=== PATIENT | female | born 1945 | race African-American/Black ===

== ENCOUNTER 2018-09-27 13:33 | Emergency (ER) | payer OTHER, MEDICARE ==
[~2018-09-27] VITALS: Ht 162.6 cm; Wt 87.1 kg
[~2018-09-27 13:33] MED LIST: ASPI-482 PO; CHOL10003 PO; CRESTOR20 MG PO; MULT-208 PO
[2018-09-27 13:40] VITALS: BP 161/74
[2018-09-27] MEDS ORDERED: ACETAMINOPHEN 325 MG TABLET. PO ONE (14:15)
[2018-09-27] MEDS ORDERED: LIDOCAINE (700MG/PATCH) PATCH. TD SCH (14:30)
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
== END 2018-09-27 15:37 | disposition home or self-care (01) ==
LOC: ER 13:33
DX: M54.16 Radiculopathy, lumbar region (principal); M25.572 Pain in left ankle and joints of left foot; E78.00 Pure hypercholesterolemia, unspecified; I10 Essential (primary) hypertension; V43.62XA Car passenger injured in collision with other type car in traffic accident, initial encounter; Y93.89 Activity, other specified; Y92.410 Unspecified street and highway as the place of occurrence of the external cause; Y99.8 Other external cause status
CPT/HCPCS: 72100; 73610; 99283

== ENCOUNTER 2018-10-18 10:46 | Inpatient (IN) | payer OTHER, MEDICARE ==
[~2018-10-18] VITALS: Ht 160 cm; Wt 86.2 kg
[2018-10-18] MEDS ORDERED: IV NORMAL SALINE 1000ML BAG 1,000 ML IV SCH (11:08)
[2018-10-18] MEDS ORDERED: fentaNYL PF VIAL 100 MCG/2 ML VIAL IV PRN (11:15)
[2018-10-18 11:19] LABS: BASO # 0.1 x10^3/uL (0.0-0.2); BASO % 1 % (0-3); EOS % 0 % (0-3); HEMATOCRIT 34.9 % (36.0-47.0); HEMOGLOBIN 11.3 g/dL (12.0-15.5); LYMPH # 1.8 x10^3/uL (1.0-4.8); LYMPH % 18 % (24-48); MEAN CORPUSCULAR HEMOGLOBIN 30 pg (25-35); MEAN CORPUSCULAR HGB CONC 32 g/dL (31-37); MEAN CORPUSCULAR VOLUME 92 fL (79-100); MONO # 0.7 x10^3/uL (0.0-1.1); MONO % 7 % (0-9); NEUT # 7.4 x10^3uL (1.8-7.7); NEUT % 74 % (31-73); PLATELET COUNT 273 x10^3/uL (140-400); RED BLOOD COUNT 3.77 x10^6/uL (3.50-5.40); RED CELL DISTRIBUTION WIDTH 14.1 % (11.5-14.5)
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
[2018-10-18 11:41] LABS: ALBUMIN 3.3 g/dL (3.4-5.0); DIRECT BILIRUBIN 0.1 mg/dL (0.0-0.2); TOTAL BILIRUBIN 0.6 mg/dL (0.2-1.0); TOTAL PROTEIN 7.9 g/dL (6.4-8.2)
[2018-10-18 11:47] LABS: BILIRUBIN,URINE NEGATIVE (NEG); CLARITY,URINE CLEAR; COLOR,URINE YELLOW; NITRITE,URINE NEGATIVE (NEG); PROTEIN,URINE NEGATIVE (NEG-TRACE); UROBILINOGEN,URINE 0.2 mg/dL (0.2 mg/dL)
[2018-10-18 11:51] LABS: SQUAMOUS EPITHELIAL CELL,UR OCC /LPF
[2018-10-18 11:52] LABS: BACTERIA,URINE FEW /HPF (0-FEW); RBC,URINE 0 /HPF (0-2); WBC,URINE OCC /HPF (0-4)
[2018-10-18 11:56] LABS: CALCIUM 9.4 mg/dL (8.5-10.1); GFR 65.9; POTASSIUM 3.3 mmol/L (3.5-5.1)
[2018-10-18] MEDS ORDERED: IOHEXOL 300 MG/ML 100ML VIAL. IV ONE (12:15)
[2018-10-18] MEDS ORDERED: CONTRAST GIVEN. MC PRN (12:30)
--- NOTE | 2018-10-18 12:54 | RAD ---
EXAM: Abdomen and pelvis CT with intravenous contrast. HISTORY: Pain. TECHNIQUE: Computed tomographic images of the abdomen and pelvis were obtained following the administration of 75 cc Omnipaque 300 intravenous contrast. Multiplanar reformatting was performed. *One or more of the following individualized dose reduction techniques were utilized for this examination: 1. Automated exposure control. 2. Adjustment of the mA and/or kV according to patient size. 3. Use of iterative reconstruction technique. COMPARISON: None. FINDINGS: Evaluation of the lower thorax demonstrates posterior dependent and basilar atelectasis. There is no infiltrate or pleural effusion. There is mild cardia mentally. There is coronary artery atherosclerosis. There is a tiny hiatal hernia. No hepatic lesion is seen. The gallbladder, pancreas, spleen and adrenal glands are unremarkable. There are multiple renal cysts, the largest of which is seen within the superior left kidney measuring 3.8 cm. No solid renal lesion is seen. There is no hydronephrosis. There are a few distal colonic diverticula. There is focal fatty stranding within the lower abdomen to the right of midline containing central areas of extraluminal gas and soft tissue density. This region of stranding measures approximately 10 cm in maximum dimension and is located medially adjacent to loops of small bowel. The sigmoid colon appears to be separate from this location. There is no adjacent small or large bowel wall thickening. No drainable fluid collection is seen. There is a small amount of pelvic free fluid. The uterus is unremarkable. The urinary bladder is unremarkable. There is no lymphadenopathy. There is aortobiiliac atherosclerosis. There are degenerative changes involving the lower lumbar spine. There is a transitional lumbosacral segment. IMPRESSION: 1. Large region of fatty stranding within the anterior abdominal mesentery containing central areas of or extraluminal gas. The differential includes a perforated small bowel diverticulum or perforated small bowel neoplasm. There is no significant bowel wall thickening in this location. Specifically, the adjacent sigmoid colon appears to be separate from this region of stranding. No drainable fluid collection is seen. 2. Few distal colonic diverticula. 3. Multiple renal cysts. 4. Tiny hiatal hernia. 5. Small amount of pelvic free fluid. Electronically signed by: Leora Chavez MD (10/18/2018 12:51 PM) [id number]
--- NOTE | 2018-10-18 13:26 | PDOC1 ---
History and Physical Date of Admission Date of Admission DATE: 10/18/18 TIME: 13:25 Identification/Chief Complaint Chief Complaint error not our patient Past Medical History Past Medical History Past Medical History Past Medical History: High Cholesterol, Hypertension Past Surgical History: Other Additional Past Surgical Histo: hernia repair Alcohol Use: None Drug Use: None Current Medications Current Medications Current Medications Fentanyl Citrate (Fentanyl 2ml Vial) 50 mcg PRN Q15MIN PRN IV PAIN GREATER THAN 3/10 Last administered on 10/18/18at 11:22; Start 10/18/18 at 11:15; Stop at 11:14 Sodium Chloride 1,000 ml @ 100 mls/hr Q10H IV Last administered on 10/18/18at 11:21; Start 10/18/18 at 11:08; Stop 10/18/18 at 21:07 Iohexol (Omnipaque 300 Mg/ml) 75 ml 1X ONCE IV Last administered on 10/18/18at 12:24; Start 10/18/18 at 12:15; Stop 10/18/18 at 12:19; Status DC Info (CONTRAST GIVEN -- Rx MONITORING) 1 each PRN DAILY PRN MC SEE COMMENTS; Start 10/18/18 at 12:30; Stop 10/20/18 at 12:29 Active Scripts Active Reported Multi-Day Vitamins (Multivitamin) 1 Each Tablet 1 Tab PO DAILY Aspir 81 (Aspirin) 81 Mg Tablet.dr 81 Mg PO Vitamin D3 (Cholecalciferol (Vitamin D3)) 1,000 Unit Tablet 1 Tab PO DAILY Crestor (Rosuvastatin Calcium) 20 Mg Tablet 1 Tab PO DAILY Allergies Allergies: Coded Allergies: No Known Drug Allergies (Unverified , 07/11/14) Vitals Vitals Vital Signs Date Time Temp Pulse Resp B/P (MAP) Pulse Ox O2 Delivery O2 Flow Rate FiO2 10/18/18 11:22 18 10/18/18 11:06 98.4 76 143/71 (95) 97 Room Air 98.4 Labs Labs Laboratory Tests Test 10/18/18 10:52 10/18/18 11:01 Urine Collection Type Unknown Urine Color Yellow Urine Clarity Clear Urine pH 6.0 Urine Specific [place] 1.025 Urine Protein Negative mg/dL (NEG-TRACE) Urine Glucose (UA) Negative mg/dL (NEG) Urine Ketones (Stick) Negative mg/dL (NEG) Urine Blood Negative (NEG) Urine Nitrite Negative (NEG) Urine Bilirubin Negative (NEG) Urine Urobilinogen Dipstick 0.2 mg/dL (0.2 mg/dL) Urine Leukocyte Esterase Negative (NEG) Urine RBC 0 /HPF (0-2) Urine WBC Occ /HPF (0-4) Urine Squamous Epithelial Cells Occ /LPF Urine Bacteria Few /HPF (0-FEW) Urine Mucus Slight /LPF White Blood Count 10.0 x10^3/uL (4.0-11.0) Red Blood Count 3.77 x10^6/uL (3.50-5.40) Hemoglobin 11.3 g/dL (12.0-15.5) Hematocrit 34.9 % (36.0-47.0) Mean Corpuscular Volume 92 fL (79-100) Mean Corpuscular Hemoglobin 30 pg (25-35) Mean Corpuscular Hemoglobin Concent 32 g/dL (31-37) Red Cell Distribution Width 14.1 % (11.5-14.5) Platelet Count 273 x10^3/uL (140-400) Neutrophils (%) (Auto) 74 % (31-73) Lymphocytes (%) (Auto) 18 % (24-48) Monocytes (%) (Auto) 7 % (0-9) Eosinophils (%) (Auto) 0 % (0-3) Basophils (%) (Auto) 1 % (0-3) Neutrophils # (Auto) 7.4 x10^3uL (1.8-7.7) Lymphocytes # (Auto) 1.8 x10^3/uL (1.0-4.8) Monocytes # (Auto) 0.7 x10^3/uL (0.0-1.1) Eosinophils # (Auto) 0.0 x10^3/uL (0.0-0.7) Basophils # (Auto) 0.1 x10^3/uL (0.0-0.2) Sodium Level 138 mmol/L (136-145) Potassium Level 3.3 mmol/L (3.5-5.1) Chloride Level 99 mmol/L (98-107) Carbon Dioxide Level 29 mmol/L (21-32) Anion Gap 10 (6-14) Blood Urea Nitrogen 13 mg/dL (7-20) Creatinine 1.0 mg/dL (0.6-1.0) Estimated GFR (Cockcroft-Gault) 65.9 Glucose Level 103 mg/dL (70-99) Calcium Level 9.4 mg/dL (8.5-10.1) Total Bilirubin 0.6 mg/dL (0.2-1.0) Direct Bilirubin 0.1 mg/dL (0.0-0.2) Aspartate Amino Transf (AST/SGOT) 9 U/L (15-37) Alanine Aminotransferase (ALT/SGPT) 16 U/L (14-59) Alkaline Phosphatase 85 U/L (46-116) Total Protein 7.9 g/dL (6.4-8.2) Albumin 3.3 g/dL (3.4-5.0) Lipase 36 U/L (73-393) Laboratory Tests Test 10/18/18 10:52 10/18/18 11:01 Urine Collection Type Unknown Urine Color Yellow Urine Clarity Clear Urine pH 6.0 Urine Specific [place] 1.025 Urine Protein Negative mg/dL (NEG-TRACE) Urine Glucose (UA) Negative mg/dL (NEG) Urine Ketones (Stick) Negative mg/dL (NEG) Urine Blood Negative (NEG) Urine Nitrite Negative (NEG) Urine Bilirubin Negative (NEG) Urine Urobilinogen Dipstick 0.2 mg/dL (0.2 mg/dL) Urine Leukocyte Esterase Negative (NEG) Urine RBC 0 /HPF (0-2) Urine WBC Occ /HPF (0-4) Urine Squamous Epithelial Cells Occ /LPF Urine Bacteria Few /HPF (0-FEW) Urine Mucus Slight /LPF White Blood Count 10.0 x10^3/uL (4.0-11.0) Red Blood Count 3.77 x10^6/uL (3.50-5.40) Hemoglobin 11.3 g/dL (12.0-15.5) Hematocrit 34.9 % (36.0-47.0) Mean Corpuscular Volume 92 fL (79-100) Mean Corpuscular Hemoglobin 30 pg (25-35) Mean Corpuscular Hemoglobin Concent 32 g/dL (31-37) Red Cell Distribution Width 14.1 % (11.5-14.5) Platelet Count 273 x10^3/uL (140-400) Neutrophils (%) (Auto) 74 % (31-73) Lymphocytes (%) (Auto) 18 % (24-48) Monocytes (%) (Auto) 7 % (0-9) Eosinophils (%) (Auto) 0 % (0-3) Basophils (%) (Auto) 1 % (0-3) Neutrophils # (Auto) 7.4 x10^3uL (1.8-7.7) Lymphocytes # (Auto) 1.8 x10^3/uL (1.0-4.8) Monocytes # (Auto) 0.7 x10^3/uL (0.0-1.1) Eosinophils # (Auto) 0.0 x10^3/uL (0.0-0.7) Basophils # (Auto) 0.1 x10^3/uL (0.0-0.2) Sodium Level 138 mmol/L (136-145) Potassium Level 3.3 mmol/L (3.5-5.1) Chloride Level 99 mmol/L (98-107) Carbon Dioxide Level 29 mmol/L (21-32) Anion Gap 10 (6-14) Blood Urea Nitrogen 13 mg/dL (7-20) Creatinine 1.0 mg/dL (0.6-1.0) Estimated GFR (Cockcroft-Gault) 65.9 Glucose Level 103 mg/dL (70-99) Calcium Level 9.4 mg/dL (8.5-10.1) Total Bilirubin 0.6 mg/dL (0.2-1.0) Direct Bilirubin 0.1 mg/dL (0.0-0.2) Aspartate Amino Transf (AST/SGOT) 9 U/L (15-37) Alanine Aminotransferase (ALT/SGPT) 16 U/L (14-59) Alkaline Phosphatase 85 U/L (46-116) Total Protein 7.9 g/dL (6.4-8.2) Albumin 3.3 g/dL (3.4-5.0) Lipase 36 U/L (73-393) Images Images EXAM: Abdomen and pelvis CT with intravenous contrast. HISTORY: Pain. TECHNIQUE: Computed tomographic images of the abdomen and pelvis were obtained following the administration of 75 cc Omnipaque 300 intravenous contrast. Multiplanar reformatting was performed. *One or more of the following individualized dose reduction techniques were utilized for this examination: 1. Automated exposure control. 2. Adjustment of the mA and/or kV according to patient size. 3. Use of iterative reconstruction technique. COMPARISON: None. FINDINGS: Evaluation of the lower thorax demonstrates posterior dependent and basilar atelectasis. There is no infiltrate or pleural effusion. There is mild cardia mentally. There is coronary artery atherosclerosis. There is a tiny hiatal hernia. No hepatic lesion is seen. The gallbladder, pancreas, spleen and adrenal glands are unremarkable. There are multiple renal cysts, the largest of which is seen within the superior left kidney measuring 3.8 cm. No solid renal lesion is seen. There is no hydronephrosis. There are a few distal colonic diverticula. There is focal fatty stranding within the lower abdomen to the right of midline containing central areas of extraluminal gas and soft tissue density. This region of stranding measures approximately 10 cm in maximum dimension and is located medially adjacent to loops of small bowel. The sigmoid colon appears to be separate from this location. There is no adjacent small or large bowel wall thickening. No drainable fluid collection is seen. There is a small amount of pelvic free fluid. The uterus is unremarkable. The urinary bladder is unremarkable. There is no lymphadenopathy. There is aortobiiliac atherosclerosis. There are degenerative changes involving the lower lumbar spine. There is a transitional lumbosacral segment. IMPRESSION: 1. Large region of fatty stranding within the anterior abdominal mesentery containing central areas of or extraluminal gas. The differential includes a perforated small bowel diverticulum or perforated small bowel neoplasm. There is no significant bowel wall thickening in this location. Specifically, the adjacent sigmoid colon appears to be separate from this region of stranding. No drainable fluid collection is seen. 2. Few distal colonic diverticula. 3. Multiple renal cysts. 4. Tiny hiatal hernia. 5. Small amount of pelvic free fluid. Electronically signed by: Leora Chavez MD (10/18/2018 12:51 PM) [id number] VTE Prophylaxis Ordered VTE Prophylaxis Devices: Yes VTE Pharmacological Prophylaxi: Yes Assessment/Plan Assessment/Plan IMPRESSION: 1. Large region of fatty stranding within the anterior abdominal mesentery containing central areas of or extraluminal gas. The differential includes a perforated small bowel diverticulum or perforated small bowel neoplasm. There is no significant bowel wall thickening in this location. Specifically, the adjacent sigmoid colon appears to be separate from this region of stranding. No drainable fluid collection is seen. 2. Few distal colonic diverticula. 3. Multiple renal cysts. 4. Tiny hiatal hernia. 5. Small amount of pelvic free fluid. ROSIE MARTINEZ MD Oct 18, 2018 13:26
[2018-10-18] MEDS ORDERED: IV DEXTROSE 5%-LACT RINGERS 1,000 ML IV ONE (13:30)
[2018-10-18] MEDS ORDERED: PIPERACILLIN/TAZOBACTAM 3.375 GM in IV NORMAL SALINE 50ML 50 ML IV ONE (13:30)
[2018-10-18] MEDS ORDERED: ONDANSETRON PF 4 MG/2 ML VIAL. IV PRN (13:30)
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
[2018-10-18 15:00] VITALS: BP 148/77
--- NOTE | 2018-10-18 15:00 | NUR ---
Pt arrived from ED by wc at 1435. A&Ox4, VSS on RA. C/o lower abd pain 8/10 at this time. IVF infusing. Pt's at bedside. Hospital policies reviewed. CL diet restrictions explained, verbalized understanding. Will give pain meds. Side rails up x2, call light within reach, will continue to monitor.
[2018-10-18] MEDS: MORPHINE SULFATE 4 MG/ML VIAL. IV PRN (15:06)
[2018-10-18] MEDS ORDERED: GABA300C9 PO (15:59)
[2018-10-18] MEDS ORDERED: LOSA1TAB22 PO (15:59)
[2018-10-18] MEDS ORDERED: SIMV80TA17 PO (15:59)
--- NOTE | 2018-10-18 16:00 | NUR ---
Home meds reviewed with pt and pharmacy. Dr. Perez notified of admission, would like to hold home meds for now, orders for hydralazine prn obtained in case of need, pt informed of the same. Will continue to monitor.
[2018-10-18] MEDS ORDERED: hydrALAZINE 20 MG/ML VIAL. IVP PRN (16:15)
[2018-10-18 19:00] VITALS: BP 158/89
[2018-10-18 23:00] VITALS: BP 145/77
[2018-10-18] MEDS ORDERED: POTASSIUM CHLORIDE 10 MEQ TABLET.ER. PO ONE (23:30)
[2018-10-18] MEDS: ACETAMINOPHEN 325 MG TABLET. PO PRN (23:32)
--- NOTE | 2018-10-18 23:34 | NUR ---
MD was notified of slight temp. Orders were given. Pt. Addendum: 10/18/18 at 2337 by RORY SUTHERLAND RN Pt. also has potassium of 3.3. Order was given to help with this as well. Medications were explained to patient. Will continue to monitor.
[2018-10-18 23:59] LABS: BASO # 0.1 x10^3/uL (0.0-0.2); BASO % 1 % (0-3); EOS % 0 % (0-3); HEMATOCRIT 32.8 % (36.0-47.0); HEMOGLOBIN 10.6 g/dL (12.0-15.5); LYMPH # 1.2 x10^3/uL (1.0-4.8); LYMPH % 14 % (24-48); MEAN CORPUSCULAR HEMOGLOBIN 30 pg (25-35); MEAN CORPUSCULAR HGB CONC 32 g/dL (31-37); MEAN CORPUSCULAR VOLUME 92 fL (79-100); MONO # 0.6 x10^3/uL (0.0-1.1); MONO % 8 % (0-9); NEUT # 6.5 x10^3uL (1.8-7.7); NEUT % 77 % (31-73); PLATELET COUNT 241 x10^3/uL (140-400); RED BLOOD COUNT 3.55 x10^6/uL (3.50-5.40); RED CELL DISTRIBUTION WIDTH 13.9 % (11.5-14.5); WHITE BLOOD COUNT 8.5 x10^3/uL (4.0-11.0)
[2018-10-19 03:00] VITALS: BP 125/65
[2018-10-19 04:44] LABS: BASO % 0 % (0-3); EOS % 0 % (0-3); HEMATOCRIT 30.2 % (36.0-47.0); HEMOGLOBIN 9.8 g/dL (12.0-15.5); LYMPH # 1.5 x10^3/uL (1.0-4.8); LYMPH % 19 % (24-48); MEAN CORPUSCULAR HEMOGLOBIN 30 pg (25-35); MEAN CORPUSCULAR HGB CONC 32 g/dL (31-37); MEAN CORPUSCULAR VOLUME 93 fL (79-100); MONO # 0.6 x10^3/uL (0.0-1.1); MONO % 8 % (0-9); NEUT # 5.8 x10^3uL (1.8-7.7); NEUT % 72 % (31-73); PLATELET COUNT 227 x10^3/uL (140-400); RED BLOOD COUNT 3.26 x10^6/uL (3.50-5.40); WHITE BLOOD COUNT 8.1 x10^3/uL (4.0-11.0)
[2018-10-19 05:10] LABS: CALCIUM 8.6 mg/dL (8.5-10.1); GFR 65.9; POTASSIUM 3.4 mmol/L (3.5-5.1)
[2018-10-19] MEDS: MORPHINE SULFATE 4 MG/ML VIAL. IV PRN (06:02)
[2018-10-19 07:15] VITALS: BP 133/64
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
[2018-10-19] MEDS ORDERED: POTASSIUM CHLORIDE 20 MEQ TABLET.ER. PO ONE (07:45)
--- NOTE | 2018-10-19 08:51 | RAD ---
Abdomen, 2 views, 10/19/2018: HISTORY: Abdominal distention, pain Gas is present in large and small bowel in a nonspecific pattern. The gas extends down through the rectum. No free air seen in the abdomen. There is no evidence of organomegaly. Moderate scattered degenerative changes are present in the spine. IMPRESSION: No acute abdominal abnormality is detected. Electronically signed by: Fabian Carreon MD (10/19/2018 8:48 AM) [facility]
[2018-10-19] MEDS: LOSARTAN POTASSIUM 50 MG TABLET. PO SCH (09:02)
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
[2018-10-19] MEDS ORDERED: POLYVINYL ALCOHOL 1.4% OPHTH SOLUTION 15ML BOTTLE. OU PRN (09:45)
--- NOTE | 2018-10-19 10:42 | NUR ---
SW following for discharge planning. Discussed with RN, pt is from home with , gets around fine. No SW needs at this time. SW will continue to follow.
[2018-10-19 11:14] VITALS: BP 149/81
[2018-10-19] MEDS: ACETAMINOPHEN 325 MG TABLET. PO PRN ×2 (11:56→21:14)
[2018-10-19] MEDS: PIPERACILLIN/TAZOBACTAM 3.375 GM in IV NORMAL SALINE 50ML 50 ML IV SCH ×2 (11:57→17:40)
[2018-10-19] MEDS ORDERED: oxyCODONE/APAP 5/325 1 TAB TABLET PO PRN (13:30)
[2018-10-19 15:01] VITALS: BP 147/55
[2018-10-19 19:00] VITALS: BP 134/48
[2018-10-19] MEDS ORDERED: SIMVASTATIN 40 MG TABLET. PO SCH (21:00)
[2018-10-19] MEDS ORDERED: GABAPENTIN 300 MG CAPSULE. PO SCH (21:00)
[2018-10-19] MEDS: LACTOBACILLUS RHAMNOSUS GG 1 CAPSULE. PO SCH (21:12)
[2018-10-19 22:58] VITALS: BP 152/75
[2018-10-20] MEDS: PIPERACILLIN/TAZOBACTAM 3.375 GM in IV NORMAL SALINE 50ML 50 ML IV SCH ×2 (00:31→05:27)
[2018-10-20 03:00] VITALS: BP 133/72
[2018-10-20 05:19] LABS: HEMATOCRIT 31.1 % (36.0-47.0); HEMOGLOBIN 10.2 g/dL (12.0-15.5); RED BLOOD COUNT 3.38 x10^6/uL (3.50-5.40); RED CELL DISTRIBUTION WIDTH 13.9 % (11.5-14.5); WHITE BLOOD COUNT 5.6 x10^3/uL (4.0-11.0)
[2018-10-20 06:05] LABS: CALCIUM 8.8 mg/dL (8.5-10.1); GFR 65.9; POTASSIUM 3.7 mmol/L (3.5-5.1)
[2018-10-20 07:00] VITALS: BP 162/57
[2018-10-20] MEDS: ACETAMINOPHEN 325 MG TABLET. PO PRN ×2 (07:16→13:05)
--- NOTE | 2018-10-20 08:27 | PDOC ---
CRISTAL PETERSON EXTRUDER 10/20/18 0827: SURGICAL PROGRESS NOTE Subjective reports very mild left sided pain no n/v tolerating breakfast Vital Signs Vital Signs Date Time Temp Pulse Resp B/P (MAP) Pulse Ox O2 Delivery O2 Flow Rate FiO2 10/20/18 07:30 Room Air 10/20/18 03:00 98.4 62 18 133/72 (92) 98 98.4 I&O Intake and Output 10/20/18 06:59 Intake Total 760 ml Balance 760 ml Intake Oral 760 ml # Voids 6 General: Alert, Oriented X3, Cooperative, No acute distress Abdomen: Soft, Other (ND, NTTP on exam) Labs Laboratory Tests Test 10/18/18 10:52 10/18/18 11:01 10/18/18 23:45 10/19/18 03:55 Urine Collection Type Unknown Urine Color Yellow Urine Clarity Clear Urine pH 6.0 Urine Specific [place] 1.025 Urine Protein Negative mg/dL (NEG-TRACE) Urine Glucose (UA) Negative mg/dL (NEG) Urine Ketones (Stick) Negative mg/dL (NEG) Urine Blood Negative (NEG) Urine Nitrite Negative (NEG) Urine Bilirubin Negative (NEG) Urine Urobilinogen Dipstick 0.2 mg/dL (0.2 mg/dL) Urine Leukocyte Esterase Negative (NEG) Urine RBC 0 /HPF (0-2) Urine WBC Occ /HPF (0-4) Urine Squamous Epithelial Cells Occ /LPF Urine Bacteria Few /HPF (0-FEW) Urine Mucus Slight /LPF White Blood Count 10.0 x10^3/uL (4.0-11.0) 8.5 x10^3/uL (4.0-11.0) 8.1 x10^3/uL (4.0-11.0) Red Blood Count 3.77 x10^6/uL (3.50-5.40) 3.55 x10^6/uL (3.50-5.40) 3.26 x10^6/uL (3.50-5.40) Hemoglobin 11.3 g/dL (12.0-15.5) 10.6 g/dL (12.0-15.5) 9.8 g/dL (12.0-15.5) Hematocrit 34.9 % (36.0-47.0) 32.8 % (36.0-47.0) 30.2 % (36.0-47.0) Mean Corpuscular Volume 92 fL (79-100) 92 fL (79-100) 93 fL (79-100) Mean Corpuscular Hemoglobin 30 pg (25-35) 30 pg (25-35) 30 pg (25-35) Mean Corpuscular Hemoglobin Concent 32 g/dL (31-37) 32 g/dL (31-37) 32 g/dL (31-37) Red Cell Distribution Width 14.1 % (11.5-14.5) 13.9 % (11.5-14.5) 14.0 % (11.5-14.5) Platelet Count 273 x10^3/uL (140-400) 241 x10^3/uL (140-400) 227 x10^3/uL (140-400) Neutrophils (%) (Auto) 74 % (31-73) 77 % (31-73) 72 % (31-73) Lymphocytes (%) (Auto) 18 % (24-48) 14 % (24-48) 19 % (24-48) Monocytes (%) (Auto) 7 % (0-9) 8 % (0-9) 8 % (0-9) Eosinophils (%) (Auto) 0 % (0-3) 0 % (0-3) 0 % (0-3) Basophils (%) (Auto) 1 % (0-3) 1 % (0-3) 0 % (0-3) Neutrophils # (Auto) 7.4 x10^3uL (1.8-7.7) 6.5 x10^3uL (1.8-7.7) 5.8 x10^3uL (1.8-7.7) Lymphocytes # (Auto) 1.8 x10^3/uL (1.0-4.8) 1.2 x10^3/uL (1.0-4.8) 1.5 x10^3/uL (1.0-4.8) Monocytes # (Auto) 0.7 x10^3/uL (0.0-1.1) 0.6 x10^3/uL (0.0-1.1) 0.6 x10^3/uL (0.0-1.1) Eosinophils # (Auto) 0.0 x10^3/uL (0.0-0.7) 0.0 x10^3/uL (0.0-0.7) 0.0 x10^3/uL (0.0-0.7) Basophils # (Auto) 0.1 x10^3/uL (0.0-0.2) 0.1 x10^3/uL (0.0-0.2) 0.0 x10^3/uL (0.0-0.2) Sodium Level 138 mmol/L (136-145) 138 mmol/L (136-145) Potassium Level 3.3 mmol/L (3.5-5.1) 3.4 mmol/L (3.5-5.1) Chloride Level 99 mmol/L (98-107) 101 mmol/L (98-107) Carbon Dioxide Level 29 mmol/L (21-32) 29 mmol/L (21-32) Anion Gap 10 (6-14) 8 (6-14) Blood Urea Nitrogen 13 mg/dL (7-20) 7 mg/dL (7-20) Creatinine 1.0 mg/dL (0.6-1.0) 1.0 mg/dL (0.6-1.0) Estimated GFR (Cockcroft-Gault) 65.9 65.9 Glucose Level 103 mg/dL (70-99) 125 mg/dL (70-99) Calcium Level 9.4 mg/dL (8.5-10.1) 8.6 mg/dL (8.5-10.1) Total Bilirubin 0.6 mg/dL (0.2-1.0) Direct Bilirubin 0.1 mg/dL (0.0-0.2) Aspartate Amino Transf (AST/SGOT) 9 U/L (15-37) Alanine Aminotransferase (ALT/SGPT) 16 U/L (14-59) Alkaline Phosphatase 85 U/L (46-116) Total Protein 7.9 g/dL (6.4-8.2) Albumin 3.3 g/dL (3.4-5.0) Lipase 36 U/L (73-393) Test 10/20/18 04:05 White Blood Count 5.6 x10^3/uL (4.0-11.0) Red Blood Count 3.38 x10^6/uL (3.50-5.40) Hemoglobin 10.2 g/dL (12.0-15.5) Hematocrit 31.1 % (36.0-47.0) Mean Corpuscular Volume 92 fL (79-100) Mean Corpuscular Hemoglobin 30 pg (25-35) Mean Corpuscular Hemoglobin Concent 33 g/dL (31-37) Red Cell Distribution Width 13.9 % (11.5-14.5) Platelet Count 227 x10^3/uL (140-400) Sodium Level 141 mmol/L (136-145) Potassium Level 3.7 mmol/L (3.5-5.1) Chloride Level 104 mmol/L (98-107) Carbon Dioxide Level 29 mmol/L (21-32) Anion Gap 8 (6-14) Blood Urea Nitrogen 10 mg/dL (7-20) Creatinine 1.0 mg/dL (0.6-1.0) Estimated GFR (Cockcroft-Gault) 65.9 Glucose Level 114 mg/dL (70-99) Calcium Level 8.8 mg/dL (8.5-10.1) Laboratory Tests Test 10/20/18 04:05 White Blood Count 5.6 x10^3/uL (4.0-11.0) Red Blood Count 3.38 x10^6/uL (3.50-5.40) Hemoglobin 10.2 g/dL (12.0-15.5) Hematocrit 31.1 % (36.0-47.0) Mean Corpuscular Volume 92 fL (79-100) Mean Corpuscular Hemoglobin 30 pg (25-35) Mean Corpuscular Hemoglobin Concent 33 g/dL (31-37) Red Cell Distribution Width 13.9 % (11.5-14.5) Platelet Count 227 x10^3/uL (140-400) Sodium Level 141 mmol/L (136-145) Potassium Level 3.7 mmol/L (3.5-5.1) Chloride Level 104 mmol/L (98-107) Carbon Dioxide Level 29 mmol/L (21-32) Anion Gap 8 (6-14) Blood Urea Nitrogen 10 mg/dL (7-20) Creatinine 1.0 mg/dL (0.6-1.0) Estimated GFR (Cockcroft-Gault) 65.9 Glucose Level 114 mg/dL (70-99) Calcium Level 8.8 mg/dL (8.5-10.1) Problem List Problems Medical Problems: (1) Abdominal pain Status: Acute (2) Pneumoperitoneum Status: Acute Assessment/Plan mesenteric hematoma stable, supportive care ROSIE NEELY MD 10/20/18 1029: SURGICAL PROGRESS NOTE Assessment/Plan Patient doing much better, less pain. Tolerated diet. OK for d/c from surgical point of view. Would recommend oral abx for 1 week CRISTAL PETERSON APRN Oct 20, 2018 08:27 ROSIE NEELY MD Oct 20, 2018 10:29
[2018-10-20] MEDS: LACTOBACILLUS RHAMNOSUS GG 1 CAPSULE. PO SCH (09:42)
[2018-10-20] MEDS: LOSARTAN POTASSIUM 50 MG TABLET. PO SCH (09:43)
[2018-10-20 11:00] VITALS: BP 165/80
[2018-10-20] MEDS ORDERED: ACET325T9 PO (11:50)
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
--- NOTE | 2018-10-20 13:00 | NUR ---
Discharge orders placed. Discharge instructions/medications discussed with pt. Explained antibiotic, Augmentin 875 #14 1 tab PO BID, will be called into [facility] [phone] along with probiotic per pt request. Explained to pt the need to f/u with Dr. Anderson x1 week. Pt explains she already has an appt on 11/03/2018. Explained this appt will work no need for another appt. Pt verbalized understanding. Explained to pt if abd pain to intensify go to local ER. Pt verbalized understanding. IV removed without complications. GARCÍA Fountain wheeled pt/family members out to hospital exit without complications.
--- NOTE | 2018-10-20 13:01 | NUR ---
SW following for discharge planning. Discussed with RN, no SW needs at this time. SW will continue to follow.
--- NOTE | 2018-10-20 13:03 | NUR ---
Spoke with Johnnie, [facility] [phone], calling in Augmentin [phone] #14 1 tab PO BID x7 days. Asked Johnnie to give pt a probiotic per pt request. Johnnie voiced understanding.
== END 2018-10-20 13:10 | disposition home or self-care (01) | DRG 605 ==
LOC: ER 10:46 → 4 NORTH 13:30
PROVIDERS: ADMIT Family Medicine; ATTEND Family Medicine
DX: S30.1XXA Contusion of abdominal wall, initial encounter (principal); E44.1 Mild protein-calorie malnutrition; K57.30 Diverticulosis of large intestine without perforation or abscess without bleeding; K44.9 Diaphragmatic hernia without obstruction or gangrene; N28.1 Cyst of kidney, acquired; E87.6 Hypokalemia; D64.9 Anemia, unspecified; E78.00 Pure hypercholesterolemia, unspecified; E78.5 Hyperlipidemia, unspecified; G62.9 Polyneuropathy, unspecified; X58.XXXA Exposure to other specified factors, initial encounter; I10 Essential (primary) hypertension; I25.10 Atherosclerotic heart disease of native coronary artery without angina pectoris; K21.9 Gastro-esophageal reflux disease without esophagitis; K59.03 Drug induced constipation; Z79.899 Other long term (current) drug therapy; Z68.33 Body mass index [BMI] 33.0-33.9, adult; Y93.89 Activity, other specified; Y92.89 Other specified places as the place of occurrence of the external cause; Y99.8 Other external cause status; K66.8 Other specified disorders of peritoneum
CPT/HCPCS: 36415; 74021; 74177; 80048; 80076; 81001; 83690; 85025; 85027; 87040; 96361; 96365; 96375; J0360; J2270; J2543; J3010; J7030; Q9967; 99285-25